=== PATIENT | female | born 1940 | race Caucasian/White ===

== ENCOUNTER → 2016-12-07 | Day surgery (SDC) | payer MEDICARE, BC ==
[~2016-12-07] MED LIST: HEPARIN 500 Unit PRE-FILL 100 U/ML SOL IV ONE; LIDOCAINE HCL 1% MPF SOL ONE; METOCLOPRAMIDE HYDROCHLORIDE 5 MG/ML SOL ONE; PROPOFOL 500 MG/50 ML EMU IV ONE; SODIUM CHLORIDE 0.9% FLUSH 10 ML SOL IV ONE
[2016-12-07 08:37] VITALS: TEMP 96.8
[2016-12-07 09:32] VITALS: BP 137/72; PULSE 63; RESP 20; O2SAT 92
== END | disposition home or self-care (01) | DRG 812 ==
LOC: SURG 07:00
PROVIDERS: ATTEND Surgery
DX: D50.9 Iron deficiency anemia, unspecified (principal); E11.9 Type 2 diabetes mellitus without complications; Z79.4 Long term (current) use of insulin; K57.30 Diverticulosis of large intestine without perforation or abscess without bleeding; K44.9 Diaphragmatic hernia without obstruction or gangrene
CPT/HCPCS: 36415; 85610; J1644; J2405; J2765; J7643; J2001; J2704

== ENCOUNTER 2017-01-12 14:20 | Emergency (ER) | payer MEDICARE, BC ==
[2017-01-12 11:47] LABS: BASOPHILS % (AUTO) 1 % (0-3); EOSINOPHILS % (AUTO) 0 % (0-9); HEMATOCRIT 30 % (35-47); MEAN CORPUSCULAR HGB CONC 34.3 gm/dl (32.0-36.0); MEAN CORPUSCULAR VOLUME 83 fL (81-99); MONOCYTES % (AUTO) 5.4 % (0-12); NEUTROPHILS % (AUTO) 87.1 % (37-80)
[2017-01-12 12:11] LABS: ALBUMIN 3.4 gm/dl (3.4-5.0); CALCIUM 8.9 mg/dl (8.5-10.1); POTASSIUM 3.9 mMol/L (3.5-5.1)
[2017-01-12 12:24] LABS: ANISOCYTOSIS MOD AMT; OVALOCYTES PRESENT
[2017-01-12 13:23] LABS: APPEARANCE,URINE Slightly Cloudy; BILIRUBIN,URINE NEGATIVE (NEGATIVE); COLOR,URINE Yellow; GLUCOSE, URINE (UA) NEGATIVE (NEGATIVE); KETONES,URINE 2+ (NEGATIVE); LEUKOCYTE ESTERASE ,URINE NEGATIVE (NEGATIVE); NITRATE,URINE NEGATIVE (NEGATIVE); OCCULT BLOOD,URINE TRACE LYSED (NEG-TRACE); PH,URINE 5.5; UROBILINOGEN,URINE 0.2 (0.2-1.0 EU)
[2017-01-12 13:32] LABS: RBC,URINE NEGATIVE (0-3AV/HPF); WBC,URINE 0-2 (0-5AV/HPF)
[2017-01-12 16:33] VITALS: RESP 16
[2017-01-12 16:34] VITALS: BP 108/54; PULSE 62; O2SAT 94
[2017-01-12 20:01] VITALS: TEMP 100.4
== END 2017-01-12 16:16 | disposition home or self-care (01) | DRG 948 ==
LOC: ED 14:20
DX: R41.82 Altered mental status, unspecified (principal); E11.621 Type 2 diabetes mellitus with foot ulcer; L97.522 Non-pressure chronic ulcer of other part of left foot with fat layer exposed
CPT/HCPCS: 15275; 36415; 36591; 80053; 81001; 85025; 87040; 87077; 87186; 87205; 96365; 96366; 99211; 99282; J1644; A6232; Q4137

== ENCOUNTER 2017-01-13 17:26 | Emergency (ER) | payer MEDICARE, BC ==
[2017-01-13] MEDS: SODIUM CHLORIDE 0.9% 1000ML 1,000 ML IV SCH ×3 (18:15→20:15)
[2017-01-13 18:26] VITALS: RESP 20
[2017-01-13 18:32] LABS: BASOPHILS % (AUTO) 1 % (0-3); EOSINOPHILS % (AUTO) 0 % (0-9); HEMATOCRIT 26 % (35-47); MEAN CORPUSCULAR HGB CONC 33.4 gm/dl (32.0-36.0); MEAN CORPUSCULAR VOLUME 82 fL (81-99); MONOCYTES % (AUTO) 8.4 % (0-12); NEUTROPHILS % (AUTO) 85.4 % (37-80)
[2017-01-13 18:45] LABS: ALBUMIN 2.8 gm/dl (3.4-5.0); CALCIUM 8.4 mg/dl (8.5-10.1); POTASSIUM 3.1 mMol/L (3.5-5.1)
[2017-01-13 18:51] LABS: ANISOCYTOSIS MOD AMT; OVALOCYTES PRESENT
[2017-01-13] MEDS ORDERED: POTASSIUM CHLORIDE 2 MEQ/ML 20 MEQ, LIDOCAINE HCL 1% MDV 2 ML in SODIUM CHLORIDE 0.9% 2... IV ONE (18:58)
[2017-01-13] MEDS ORDERED: VANCOMYCIN HCL 500 MG PDS 1,000 MG in SODIUM CHLORIDE 0.9% 250 ML 250 ML IV ONE (19:39)
[2017-01-13] MEDS ORDERED: SODIUM CHLORIDE 0.9% IV ONE (19:55)
[2017-01-13] MEDS ORDERED: VANCOMYCIN HCL IV ONE (19:55)
[2017-01-13] MEDS ORDERED: PDS IV ONE (19:55)
[2017-01-13] MEDS ORDERED: VANCOMYCIN HYDROCHLORIDE 500 MG PDS IV ONE (20:00)
[2017-01-13] MEDS ORDERED: POTASSIUM CHLORIDE 2 MEQ/ML 40 MEQ, LIDOCAINE HCL 1% MDV 2 ML in SODIUM CHLORIDE 0.9% 5... IV ONE (20:06)
[2017-01-13] MEDS ORDERED: ACETAMINOPHEN 325 MG PO ONE (20:06)
[2017-01-13] MEDS ORDERED: POTASSIUM CHLORIDE 2 MEQ/ML SOL IV ONE (20:08)
[2017-01-13] MEDS ORDERED: LIDOCAINE HCL 1% MPF SOL ONE (20:14)
[2017-01-13] MEDS ORDERED: ACETAMINOPHEN 325 MG ONE (20:22)
[2017-01-13 20:25] VITALS: TEMP 103.2
[2017-01-13 20:54] VITALS: BP 106/81; PULSE 89; O2SAT 85
== END 2017-01-13 20:35 | disposition short-term general hospital (02) | DRG 872 ==
LOC: ED 17:26
DX: A41.9 Sepsis, unspecified organism (principal); I95.89 Other hypotension; E11.621 Type 2 diabetes mellitus with foot ulcer; L97.509 Non-pressure chronic ulcer of other part of unspecified foot with unspecified severity; C50.919 Malignant neoplasm of unspecified site of unspecified female breast; D64.9 Anemia, unspecified; E86.0 Dehydration; E87.6 Hypokalemia; Z79.4 Long term (current) use of insulin
CPT/HCPCS: 36415; 80053; 85025; 87804; 99291; J3370; J3480; J2001

== ENCOUNTER 2017-02-23 11:16 | Emergency (ER) | payer MEDICARE, BC ==
[2017-02-23] MEDS ORDERED: DILTIAZEM 5 MG/ML SOL IV ONE ×3 (11:31→11:49)
[2017-02-23] MEDS ORDERED: SODIUM CHLORIDE 0.9% 500 ML 500 ML IV ONE (11:36)
[2017-02-23 11:43] LABS: BASOPHILS % (AUTO) 1 % (0-3); EOSINOPHILS % (AUTO) 0 % (0-9); HEMATOCRIT 35 % (35-47); MEAN CORPUSCULAR HGB CONC 32.2 gm/dl (32.0-36.0); MEAN CORPUSCULAR VOLUME 90 fL (81-99); MONOCYTES % (AUTO) 8.3 % (0-12); NEUTROPHILS % (AUTO) 81.4 % (37-80)
[2017-02-23] MEDS ORDERED: DILTIAZEM 5 MG/ML 125 MG in SODIUM CHLORIDE 0.9% 100 ML 100 ML IV SCH (11:45)
[2017-02-23] MEDS ORDERED: HYDROMORPHONE HCL 2 MG/ML SOL IV ONE (11:45)
[2017-02-23] MEDS ORDERED: HYDROMORPHONE 1 MG/ML SYRINGE ONE (11:45)
[2017-02-23] MEDS ORDERED: PROCHLORPERAZINE EDISYLATE 5 MG/ML SOL IV ONE (11:52)
[2017-02-23] MEDS ORDERED: PROCHLORPERAZINE EDISYLATE 5 MG/ML SOL ONE (11:53)
[2017-02-23 12:03] LABS: ALBUMIN 3.4 gm/dl (3.4-5.0); CALCIUM 9.5 mg/dl (8.5-10.1)
[2017-02-23] MEDS ORDERED: SODIUM CHLORIDE 0.9% FLUSH 10 ML SOL IV PRN (12:06)
[2017-02-23 12:54] VITALS: TEMP 98.3
[2017-02-23] MEDS ORDERED: ENOXAPARIN 80 MG SOL SC ONE ×2 (14:52→14:54)
[2017-02-23] MEDS ORDERED: LIDOCAINE 5% PATCH 1 PATCH TDM TOP ONE ×2 (15:00→15:05)
[2017-02-23] MEDS ORDERED: ACETAMINOPHEN 500 MG 500 MG TAB PO ONE ×2 (15:00)
[2017-02-23] MEDS ORDERED: ACETAMINOPHEN 500 MG 500 MG TAB ONE (15:02)
[2017-02-23 15:27] VITALS: BP 120/76; PULSE 143; RESP 24; O2SAT 92
== END 2017-02-23 16:00 | disposition short-term general hospital (02) | DRG 310 ==
LOC: ED 11:16
DX: I48.91 Unspecified atrial fibrillation (principal); D72.829 Elevated white blood cell count, unspecified; M54.89 Other dorsalgia; Z86.2 Personal history of diseases of the blood and blood-forming organs and certain disorders involving the immune mechanism
CPT/HCPCS: 36415; 71045; 80053; 84484; 85025; 85610; 87040; 93005; 99291; J0780; J1650; J1170

== ENCOUNTER 2017-03-07 15:15 | Inpatient (IN) | payer MEDICARE, BC ==
[2017-03-07] MEDS ORDERED: PROCHLORPERAZINE EDISYLATE 5 MG/ML SOL IV ONE (16:02)
[2017-03-07] MEDS ORDERED: PROCHLORPERAZINE EDISYLATE 5 MG/ML SOL ONE (16:22)
[2017-03-07] MEDS: SODIUM CHLORIDE 0.9% 1000ML 1,000 ML IV SCH ×2 (16:30→20:17)
[2017-03-07 16:38] LABS: BASOPHILS % (AUTO) 0 % (0-3); EOSINOPHILS % (AUTO) 1 % (0-9); HEMATOCRIT 36 % (35-47); MEAN CORPUSCULAR HGB CONC 31.9 gm/dl (32.0-36.0); MEAN CORPUSCULAR VOLUME 88 fL (81-99); MONOCYTES % (AUTO) 5.9 % (0-12); NEUTROPHILS % (AUTO) 77.9 % (37-80)
[2017-03-07 16:43] LABS: ALBUMIN 2.8 gm/dl (3.4-5.0); CALCIUM 8.6 mg/dl (8.5-10.1)
[2017-03-07] MEDS ORDERED: POTASSIUM CHLORIDE 2 MEQ/ML SOL IV SCH (16:45)
[2017-03-07 16:46] LABS: POTASSIUM 2.6 mMol/L (3.5-5.1)
[2017-03-07] MEDS ORDERED: POTASSIUM CHLORIDE 2 MEQ/ML SOL IV ONE (16:46)
[2017-03-07] MEDS ORDERED: MAGNESIUM SULFATE 1 GM/2 ML SOL IV ONE (17:01)
[2017-03-07] MEDS ORDERED: MAGNESIUM SULFATE 5 GM/10 ML SOL ONE (17:18)
[2017-03-07] MEDS ORDERED: PATIENT EDUCATION 1 MISC PRN (18:11)
[2017-03-07] MEDS ORDERED: MAGNESIUM SULFATE 1 GM/2 ML 2 GM in SODIUM CHLORIDE 0.9% 100 ML 100 ML IV ONE (18:35)
[2017-03-07] MEDS ORDERED: POTASSIUM CHLORIDE 2 MEQ/ML 60 MEQ, LIDOCAINE HCL 1% MDV 2 ML in SODIUM CHLORIDE 0.9% 1... IV ONE (18:35)
[2017-03-07] MEDS ORDERED: OXYCODONE HYDROCHLORIDE 5 MG TAB PO PRN (18:39)
[2017-03-07] MEDS ORDERED: Non-Formulary Medication MISC (Polyethylene Glycol 3350 [Polyethylene Glycol* (Miralax)] PO PRN (18:39)
[2017-03-07] MEDS ORDERED: LIDOCAINE HCL 1% MPF SOL ONE (19:13)
[2017-03-07] MEDS ORDERED: ONDANSETRON HCL 4 MG/2 ML SOL IV PRN (20:17)
[2017-03-07] MEDS ORDERED: MORPHINE SULFATE 15 MG ER TAB PO SCH (21:00)
[2017-03-07] MEDS ORDERED: NOVOLOG 70/30 FLEXPEN SC SCH (21:00)
[2017-03-07] MEDS: LOVASTATIN 10 MG TAB PO SCH (21:11)
[2017-03-07] MEDS: ACETAMINOPHEN 325 MG PO SCH (21:11)
[2017-03-07] MEDS: DEXTROSE/SALINE 0.45/KCL 20MEQ 1,000 ML/1,000 ML SOL IV SCH (23:12)
[2017-03-08] MEDS ORDERED: POTASSIUM CHLORIDE 2 MEQ/ML 30 MEQ, LIDOCAINE HCL 1% MDV 2 ML in SODIUM CHLORIDE 0.9% 5... IV ONE (04:30)
[2017-03-08] MEDS ORDERED: LIDOCAINE HCL 1% MPF SOL ONE (05:13)
[2017-03-08 07:17] LABS: CALCIUM 7.7 mg/dl (8.5-10.1); POTASSIUM 3.3 mMol/L (3.5-5.1)
[2017-03-08 07:28] LABS: BASOPHILS % (AUTO) 1 % (0-3); EOSINOPHILS % (AUTO) 3 % (0-9); HEMATOCRIT 30 % (35-47); MEAN CORPUSCULAR HGB CONC 33.8 gm/dl (32.0-36.0); MEAN CORPUSCULAR VOLUME 89 fL (81-99); MONOCYTES % (AUTO) 8.6 % (0-12)
[2017-03-08] MEDS ORDERED: FUROSEMIDE 20 MG TAB PO SCH (09:00)
[2017-03-08] MEDS ORDERED: LISINOPRIL 10 MG PO SCH (09:00)
[2017-03-08] MEDS ORDERED: AMIODARONE 200 MG TAB PO SCH (09:00)
[2017-03-08] MEDS: ACETAMINOPHEN 325 MG PO SCH ×3 (09:14→20:49)
[2017-03-08] MEDS ORDERED: POLYETHYLENE GLYCOL 17 GM/1 TBS PDS PO PRN (09:15)
[2017-03-08] MEDS: WARFARIN SODIUM 2 MG TAB PO SCH (09:17)
[2017-03-08] MEDS: LISINOPRIL 5 MG TAB PO SCH (09:17)
[2017-03-08] MEDS: NOVOLOG FLEXPEN SC SCH ×3 (12:14→20:47)
[2017-03-08] MEDS: DEXTROSE/SALINE 0.45/KCL 20MEQ 1,000 ML/1,000 ML SOL IV SCH (13:50)
[2017-03-08] MEDS: OXACILLIN SODIUM IV SCH (18:11)
[2017-03-08] MEDS: POTASSIUM CHLORIDE 10 MEQ TER PO SCH (20:49)
[2017-03-08] MEDS: LOVASTATIN 10 MG TAB PO SCH (20:49)
[2017-03-09 00:51] VITALS: TEMP 97.5
[2017-03-09] MEDS: DEXTROSE/SALINE 0.45/KCL 20MEQ 1,000 ML/1,000 ML SOL IV SCH (03:53)
[2017-03-09 07:20] LABS: CALCIUM 7.8 mg/dl (8.5-10.1); POTASSIUM 3.9 mMol/L (3.5-5.1)
[2017-03-09 08:04] VITALS: BP 176/79; PULSE 59; RESP 16; O2SAT 97
[2017-03-09] MEDS: NOVOLOG FLEXPEN SC SCH ×2 (08:34→11:33)
[2017-03-09] MEDS: OXACILLIN SODIUM IV SCH (08:35)
[2017-03-09] MEDS: LISINOPRIL 5 MG TAB PO SCH (08:50)
[2017-03-09] MEDS: ACETAMINOPHEN 325 MG PO SCH (08:50)
[2017-03-09] MEDS: WARFARIN SODIUM 2 MG TAB PO SCH (08:50)
[2017-03-09] MEDS: POTASSIUM CHLORIDE 10 MEQ TER PO SCH (08:50)
== END 2017-03-09 16:20 | disposition home health service (06) | DRG 641 ==
LOC: ED 15:15 → UNDOADMIN 17:56 → ACUTE CARE 17:56
PROVIDERS: ADMIT Emergency Medicine; ATTEND Emergency Medicine
DX: E87.6 Hypokalemia (principal); E86.0 Dehydration; E11.21 Type 2 diabetes mellitus with diabetic nephropathy; E11.621 Type 2 diabetes mellitus with foot ulcer; C50.411 Malignant neoplasm of upper-outer quadrant of right female breast; L97.522 Non-pressure chronic ulcer of other part of left foot with fat layer exposed; I49.5 Sick sinus syndrome; M46.24 Osteomyelitis of vertebra, thoracic region; E83.42 Hypomagnesemia; D64.9 Anemia, unspecified; I10 Essential (primary) hypertension; R11.2 Nausea with vomiting, unspecified; Z17.1 Estrogen receptor negative status [ER-]; I44.7 Left bundle-branch block, unspecified
CPT/HCPCS: 36415; 80048; 80053; 82962; 83735; 84132; 85025; 85610; 87040; 87070; 87075; 87077; 87186; 87804; 93005; 93012; 96365; 96374; 96375; 97597; 99221; 99232; 99285; J0780; J1815; J2405; J3475; J3480; A6232; A6402; A9270-GY; J2001

== ENCOUNTER 2017-04-12 17:43 | Emergency (ER) | payer MEDICARE, BC ==
[2017-04-12 18:01] VITALS: TEMP 98.7
[2017-04-12] MEDS ORDERED: SODIUM CHLORIDE 0.9% 500 ML 500 ML IV ONE (18:49)
[2017-04-12 19:17] LABS: BASOPHILS % (AUTO) 0 % (0-3); EOSINOPHILS % (AUTO) 2 % (0-9); HEMATOCRIT 35 % (35-47); MEAN CORPUSCULAR HGB CONC 34.2 gm/dl (32.0-36.0); MEAN CORPUSCULAR VOLUME 84 fL (81-99); MONOCYTES % (AUTO) 8.7 % (0-12); NEUTROPHILS % (AUTO) 79.6 % (37-80)
[2017-04-12 19:37] LABS: ALBUMIN 3.3 gm/dl (3.4-5.0); CALCIUM 9.3 mg/dl (8.5-10.1); POTASSIUM 3.7 mMol/L (3.5-5.1)
[2017-04-12 21:27] VITALS: BP 137/88; PULSE 89; RESP 20; O2SAT 96
== END 2017-04-12 21:05 | disposition home or self-care (01) | DRG 312 ==
LOC: ED 17:43
DX: R55 Syncope and collapse (principal); I48.91 Unspecified atrial fibrillation; E11.9 Type 2 diabetes mellitus without complications; R47.81 Slurred speech; Z79.01 Long term (current) use of anticoagulants; Z79.4 Long term (current) use of insulin
CPT/HCPCS: 36415; 70450; 71045; 80053; 83735; 84484; 85025; 85610; 87040; 87430; 93005; 99283; 99284